=== PATIENT | male | born 1990 | race Two or more races ===

== ENCOUNTER 2024-07-04 12:29 | Emergency (ER) | payer OTHER ==
[~2024-07-04] VITALS: Ht 172.7 cm; Wt 86.2 kg
[2024-07-04 13:00] VITALS: BP 142/77; O2SAT 99
[2024-07-04] MEDS ORDERED: ACETAMINOPHEN 500 MG GEL..CAP PO ONE (16:00)
[2024-07-04] MEDS ORDERED: CETIRIZINE HCL 5 MG/5 ML ML PO ONE (16:00)
[2024-07-04 17:07] LABS: HEMATOCRIT 42.5 % (39.0-48.0); HEMOGLOBIN 14.6 g/dL (13-16.00); MEAN CELL VOLUME 88.5 fL (80.0-100.00); MEAN CORPUSCULAR HEMOGLOBIN 30.3 pg (27.00-32.0); MEAN CORPUSCULAR HGB CONC 34.3 g/dl (32.0-36.0); PLATELET COUNT 276 K/uL (150-450); RED CELL DISTRIBUTION WIDTH 15.7 % (11.5-14.5)
[2024-07-04] MEDS ORDERED: OSELTAMIVIR PHOSPHATE 75 MG CAPSULE PO ONE (18:00)
[2024-07-04] MEDS ORDERED: OSEL75CA PO (18:14)
[2024-07-04] MEDS ORDERED: QC TUSSIN DM L118 ML PO (18:14)
== END 2024-07-04 19:32 | disposition home or self-care (01) ==
LOC: ER 12:29
PROVIDERS: General Practice
DX: J10.1 Influenza due to other identified influenza virus with other respiratory manifestations (principal); Z20.822 Contact with and (suspected) exposure to COVID-19